=== PATIENT | male | born 1960 | race African-American/Black ===

== ENCOUNTER 2021-02-03 10:44 | Outpatient (CLI) | payer OTHER ==
[2021-02-04 01:30] LABS: SARS-CoV-2 PCR by NAA Not Detected (NotDetected)
== END 2021-02-03 10:45 | disposition home or self-care (01) ==
LOC: CSHLAB 10:44
PROVIDERS: ATTEND Internal Medicine Critical Care Medicine
DX: Z20.822 Contact with and (suspected) exposure to COVID-19 (principal); J44.9 Chronic obstructive pulmonary disease, unspecified
CPT/HCPCS: U0003; U0005